=== PATIENT | male | born 1965 | race Caucasian/White ===

== ENCOUNTER → 2017-12-31 12:59 | Outpatient (CLI) | payer OTHER, SELFPAY ==
--- NOTE | 2017-12-31 13:03 | CT_ITS ---
CT pelvis w con INDICATION: Left lower quadrant pain. Prior hernia repair ORDERING PHYSICIAN: Maximilian Bates MD PATIENT AGE: 52 years COMPARISON: None TECHNIQUE: Axial images are obtained with 75 mL is Isovue-370 contrast. Sagittal and coronal reformatted images are reviewed as well. FINDINGS: No pelvic mass or focal inflammatory changes evident. No abnormal fluid collection. There is diverticulosis of the descending and sigmoid colon but no evidence of diverticulitis. There is some minimal stranding of the subcutaneous fat in the left inguinal region consistent with prior surgery. There does appear to be a small left-sided direct inguinal hernia containing fat lying medial to the inferior epigastric vessels. This does not extend into the scrotum and only into the upper inguinal region. No acute bony anomalies. IMPRESSION: 1. Small left-sided direct inguinal hernia containing fat. 2. Sigmoid diverticulosis. No evidence of diverticulitis. 3. Postsurgical changes of left inguinal region.
== END ==
PROVIDERS: Family Provider Family Medicine; PCP Family Medicine; Visit Provider Surgery
DX: R10.32 Left lower quadrant pain (principal)
CPT/HCPCS: 72193; Q9967

== ENCOUNTER → 2018-05-24 07:43 | Outpatient (CLI) | payer OTHER, SELFPAY ==
[2018-05-24 08:36] LABS: Anion Gap 10.6 mEq/L (5-15); Blood Urea Nitrogen 19 mg/dL (7-18); Calcium 9.3 mg/dL (8.5-10.1); Carbon Dioxide 30 mmol/L (21.0-32.0); Chloride 105 mmol/L (98-107); Creatinine,Serum 1.45 mg/dL (0.70-1.30); Estimated Glomerular Filt Rate 51 ml/min (>60); GFR (African American) 62 ML/MIN (>60); Glucose 129 mg/dL (74-106); Potassium 4.6 mmoL/L (3.5-5.1); Sodium 141 mmol/L (136-145)
[2018-05-24 09:01] LABS: Basophils % 0.5 % (0.1-2.0); Eosinophils # 0.2 K/mm3 (0.0-0.4); Eosinophils % 3.6 % (0.1-12.0); Hematocrit 42.4 % (42.0-52.0); Hemoglobin 13.9 g/dL (14.1-18.0); Lymphocytes # 1.4 K/mm3 (0.7-4.5); Lymphocytes % 28.2 K/mm3 (10-50); Mean Corpuscular HGB Conc 32.9 g/dL (31.8-35.4); Mean Corpuscular Hemoglobin 28.8 pg (27.0-31.2); Mean Corpuscular Volume 87.7 fl (80-94); Mean Platelet Volume 7.9 fl (7.4-10.4); Monocytes # 0.4 K/mm3 (0.1-1.0); Monocytes % 7.1 % (1.7-9.3); Neutrophils # 3.1 K/mm3 (1.8-7.8); Neutrophils % 60.6 % (37.0-80.0); Platelet Count 215 K/mm3 (142-424); Red Blood Count 4.83 M/mm3 (4.60-6.20); Red Cell Distribution Width 13.1 % (11.5-17.5); White Blood Count 5.1 K/mm3 (4.8-10.8)
== END ==
PROVIDERS: Visit Provider Surgery
DX: K40.21 Bilateral inguinal hernia, without obstruction or gangrene, recurrent (principal)
CPT/HCPCS: 36415; 80048; 85025

== ENCOUNTER 2021-08-02 09:05 | Emergency (ER) | payer OTHER, SELFPAY ==
[2021-08-02 09:06] VITALS: BP 143/86; PULSE 80; RESP 18; TEMP 36.7; O2SAT 96; BMI 44.9
--- NOTE | 2021-08-02 09:36 | XR_ITS ---
PROCEDURE: XR FOOT LT MIN 3V CLINICAL INDICATION: pain COMPARISON: No exams were available for comparison FINDINGS: No fracture or dislocation. No lytic or blastic change. There is normal mineralization. The joint spaces are well-preserved. No significant degenerative/arthritic changes. No erosive changes evident. Other findings:No radiopaque foreign body apparent aside from a bandlike area around the midfoot which may be due to a bandage or sock IMPRESSION: No acute findings. Dictated by: Hoang Haile MD 08/02/2021 09:52 Hoang Haile MD in [place] 08/02/2021 09:52
--- NOTE | 2021-08-02 09:43 | PC.NURSE ---
patient to xray
--- NOTE | 2021-08-02 09:49 | PC.NURSE ---
patient back for xray
--- NOTE | 2021-08-02 09:56 | HMH.EDUTC ---
[facility] [place] Clinical Impression: Left foot infection, Cellulitis of left foot Diabetes Qualifiers: Diabetes mellitus type: type 2 Diabetes mellitus mcfp insulin use: without mcfp use Diabetes mellitus complication status: without complication Qualified Code(s): E11.9 - Type 2 diabetes mellitus without complications Disposition: Home, Self-Care Condition on Discharge: Good Instructions: Cellulitis Additional Instructions: Keep the wounds clean and dry. Follow up with your regular doctor. Take the antibiotics as directed and apply the topical antibiotics as directed. Make sure you stay in contact with the health department regarding the health of the dog. Watch the wound for signs of worsening infection, such as worsening redness, drainage, swelling, etc. I put in a referral to podiatry (Dr. Grimm). Please call her office and get an appointment to be rechecked there. GO TO THE ER FOR ANY WORSENING SYMPTOMS Prescriptions: Sulfamethoxazole/Trimethoprim [Bactrim DS tablet] 1 each PO BID 10 Days #20 tab Transmission Status: Received by Epic! #[id number] Mupirocin [Bactroban 2% Ointment 22gm tube] 1 applicatio TP TID 7 Days #1 gm Transmission Status: Received by Epic! #[id number] cephALEXin [cephALEXin 500mg capsule] 500 mg PO Q6H 10 Days #40 cap Transmission Status: Received by Epic! #[id number] Referrals: Chandra Lim [Primary Care Provider] - Rachelle Grimm DPM [Staff Physician] - Forms: Work/School Release Time of Disposition: 10:08 Medical Decision Making - Medical Records Medical records reviewed: No: I reviewed the patient's medical records. - Brice Inquiry Pt receiving controlled substance: No Vital Signs: 08/02/21 09:06 08/02/21 10:35 Temperature 98.1 F 98.1 F Temperature Source Oral Pulse Rate 80 Pulse Rate [Right Radial] 80 Respiratory Rate 18 18 Blood Pressure 143/86 H Blood Pressure [Right Arm] 143/86 H Blood Pressure Mean [Right Arm] 105 Blood Pressure Source [Right Arm] Automatic Cuff Blood Pressure Position [Right Arm] Sitting 02 Sat by Pulse Oximetry 96 Oxygen Delivery Method Room Air Orders (Tests/Meds): ED MEDICATIONS Discontinued Medications Generic Name Dose Route Start Last Admin Trade Name Freq PRN Reason Stop Dose Admin Ceftriaxone Sodium 1 gm 08/02/21 10:00 08/02/21 10:13 Ceftriaxone 1gm Vial IM 08/02/21 10:01 1 gm ONCE ONE Administration Lidocaine HCl 0 ml 08/02/21 10:00 08/02/21 10:14 Lidocaine 1% 5ml Pf Vial IM 08/02/21 10:01 2.1 ml ONCE ONE Administration ORDERS Category Date Time Status Wound Culture and Gram Stain Stat Micro 08/02/21 10:15 Received - Radiology Data #1 Image(s): Foot/Toes Image Reviewed: Yes I reviewed the patient's radiology image, Yes I have reviewed radiologist's interpretation Preliminary Findings: Normal/NAD, No Fracture Seen PROCEDURE: XR FOOT LT MIN 3V CLINICAL INDICATION: pain COMPARISON: No exams were available for comparison FINDINGS: No fracture or dislocation. No lytic or blastic change. There is normal mineralization. The joint spaces are well-preserved. No significant degenerative/arthritic changes. No erosive changes evident. Other findings:No radiopaque foreign body apparent aside from a bandlike area around the midfoot which may be due to a bandage or sock IMPRESSION: No acute findings. Dictated by: Hoang Haile MD 08/02/2021 09:52 Hoang Haile MD in [place] 08/02/2021 09:52 Medical Decision Narrative: The wound was cultured. [facility] [place] - General Stated complaint: FO lt foot Time Seen by Provider: 08/02/21 09:56 Mode of Arrival: Ambulatory Source of Information: Patient Limitations: No Limitations Description of Symptoms (Recalled from Triage Doc. by RN): Pt states that he bumped his left foot on something x2 weeks ago. An area of redness appeared above the left pink
[2021-08-02 10:35] VITALS: BP 143/86; PULSE 80; RESP 18; TEMP 36.7; O2SAT 96
== END 2021-08-02 10:36 | disposition home or self-care (01) ==
PROVIDERS: Emergency Provider Nurse Practitioner Family; PCP Family Medicine
DX: L03.116 Cellulitis of left lower limb (principal); E11.9 Type 2 diabetes mellitus without complications
CPT/HCPCS: 73630; 87070; 87077; 87186; 87205; 96372; 99202; G0463

== ENCOUNTER → 2022-04-29 07:47 | Outpatient (CLI) | payer BC, SELFPAY ==
[2022-04-29 09:30] LABS: Thyroid Stimulating Hormone 4.91 uIU/mL (0.465-4.68)
== END ==
PROVIDERS: PCP Family Medicine; Visit Provider Internal Medicine
DX: E89.0 Postprocedural hypothyroidism (principal)
CPT/HCPCS: 36415; 84443